=== PATIENT | female | born 1975 | race Caucasian/White ===

== ENCOUNTER 2018-11-26 12:06 | Emergency (ER) | payer MEDICARE, MEDICAID ==
[2018-11-26] MEDS ORDERED: Lorazepam 2 MG/ML VIAL ONE (12:52)
[2018-11-26 12:58] LABS: #Basophils 0.1 thou/uL (0.0-0.2); #Lymphocytes 3.2 thou/uL (1.20-3.40); #Monocytes 0.6 thou/uL (0.11-0.59); #Neutrophils 7.1 thou/uL (1.40-6.50); %Basophils 1.1 % (0.0-1.0); %Eosinophils 0.4 % (0.0-10.0); %Lymphocytes 28.7 % (21.0-51.0); %Monocytes 5.7 % (0.0-10.0); %Neutrophils 64.1 % (42.0-75.0); Hemoglobin 16.2 g/dL (12.0-16.0); Mean Corpuscular HGB CONC 33.3 g/dL (32.0-36.0); Mean Corpuscular Hemoglobin 28.7 pg (27.0-31.0); Mean Corpuscular Volume 86.2 fL (78.0-98.0); Mean Platelet Volume 8.8 fL (7.4-10.4); Platelet Count 347 thou/uL (130-400); RBC Distribution Width 13.8 % (11.5-14.5); Red Blood Cell (RBC) Count 5.65 mill/uL (4.20-5.40); White Blood Cell (WBC) Count 11.1 thou/uL (4.8-10.8)
[2018-11-26 13:15] LABS: Anion Gap 23 mmol/L (10-20); BUN (Urea Nitrogen) 9 mg/dL (7.0-18.7); Calc. Creatinine Clearance 0 mL/min (70-130); Calcium 10.5 mg/dL (7.8-10.44); Carbon Dioxide 17 mmol/L (22-29); Chloride 106 mmol/L (98-107); Estimated GFR-MDRD 66; Glucose 82 mg/dL (70-105); Potassium 3.9 mmol/L (3.5-5.1); Sodium 142 mmol/L (136-145)
[2018-11-26] MEDS ORDERED: Potassium Chloride 20 MEQ TAB ONE (13:58)
== END 2018-11-26 14:41 | disposition home or self-care (01) ==
LOC: ERS 12:06
DX: F41.0 Panic disorder [episodic paroxysmal anxiety] (principal); I10 Essential (primary) hypertension
CPT/HCPCS: 36415; 80048; 85025; 93005; 96374; J2060